=== PATIENT | male | born 1980 | race Caucasian/White ===

== ENCOUNTER 2016-05-25 13:30 | Emergency (ER) | payer OTHER ==
[2016-05-25] MEDS ORDERED: Ketorolac INJ* 30 MG/ML 1 ML VIAL IM ONE (14:30)
--- NOTE | 2016-05-25 14:53 | ED ---
Upper Extremity Pain - HPI Summary HPI Summary: 36 male presents with complaints of right elbow pain that began on while out looking for his son in the [place]. Patient states he was running and fell. The right elbow and shoulder pain did not begin until the day or second day after. Patient states he had a lot of adrenaline when he did fall on it on and did not notice. He thinks he just fell on the ground. He has tried taking 800mg of ibuprofen this morning and icing the elbow without any relief. Not moving the elbow and certain position give him relief. Describes the pain to be throbbing that gets worse while laying in bed at night. He is able to move it, however it causes him pain. Straightening hurts him more than bending. Admits to some tingling in his finger 3 through 5. He just moved here from [place] and does not have a PCP yet. Denies any other pain, did not hit his head, no LOC. Denies radiation of pain. PMHx significant for migraines, nothing else. Denies redness, swelling or bruising. - History of Current Complaint Chief Complaint: EDExtremityUpper Stated Complaint: RT SHOULDER ARM PAIN Time Seen by Provider: 05/25/16 13:35 Hx Obtained From: Patient Mechanism Of Injury: Direct Blow, Fall From A Standing Position, Twisted Onset/Duration: Started Days Ago, Traumatic, Still Present, Worse Since Timing: Constant Severity Initially: Mild Severity Currently: Moderate Pain Location: Shoulder, Elbow Character: Aching, Throbbing, Stiffness Aggravating Factor(s): Movement Alleviating Factor(s): Rest - position Associated Signs & Symptoms: Positive: Numbness/Tingling Related History: Dominant Hand Right - Allergies/Home Medications Allergies/Adverse Reactions: Allergies Allergy/AdvReac Type Severity Reaction Status Date / Time Penicillins Allergy Hives Verified 05/25/16 14:01 Sulfa Antibiotics Allergy Hives Verified 05/25/16 14:01 Home Medications: Home Medications Amitriptyline TAB* 25 mg PO BEDTIME 05/25/16 [History Confirmed 05/25/16] Propranolol LA CAP* 40 mg PO BID 05/25/16 [History Confirmed 05/25/16] PMH/Surg Hx/FS Hx/Imm Hx Neurological History: Reports: Hx Migraine - Surgical History Surgery Procedure, Year, and Place: none - Immunization History Immunizations Up to Date: Yes Infectious Disease History: No Infectious Disease History: Denies: Traveled Outside the [place] in Last 30 Days - Family History Known Family History: Positive: None - Social History Alcohol Use: Occasionally Substance Use Type: Reports: None Smoking Status (MU): Heavy Every Day Tobacco Smoker Review of Systems Constitutional: Negative Eyes: Negative Cardiovascular: Negative Respiratory: Negative Gastrointestinal: Negative Positive: Arthralgia, Myalgia, Decreased ROM - right elbow, shoulder Skin: Negative Neurological: Negative Psychological: Normal All Other Systems Reviewed And Are Negative: Yes Physical Exam Triage Information Reviewed: Yes Vital Signs On Initial Exam: Initial Vitals Temp Pulse Resp BP Pulse Ox 98.2 F 90 16 126/94 100 05/25/16 13:32 05/25/16 13:32 05/25/16 13:32 05/25/16 13:32 05/25/16 13:32 Vital Signs Reviewed: Yes Appearance: Positive: Well-Appearing, Well-Nourished, Pain Distress - mild Skin: Positive: Warm, Skin Color Reflects Adequate Perfusion - <2 second cap refill, Dry. Negative: Cold, Cyanosis @, Erythema @ Head/Face: Positive: Normal Head/Face Inspection Eyes: Positive: Normal, EOMI, CINDI, Conjunctiva Clear ENT: Positive: Normal ENT inspection, Hearing grossly normal Neck: Positive: Supple, Nontender Respiratory/Lung Sounds: Positive: Clear to Auscultation, Breath Sounds Present Cardiovascular: Positive: Normal, RRR, Pulses are Symmetrical in both Upper and Lower Extremities - 2+ bilateral radial pulse Abdomen Description: Positive: Nontender Musculoskeletal: Positive: Limited @ - ROM at right elbow with flexion and extension, worse with flexion due to pain. Passive ROM able but painful. right shoulder ROM limited with abduction due to pain. is able to do it passively. sensation and skin intact. No obvious deformity, step-off, ecchymosis, or erythema noted of right elbow or shoulder No edema when compared to left. No bony tenderness., Pain @ - No bony tendernessof upper extremities. Points to pain and appears tender on palpation of proximal posterior elbow (over brachioradials) and posterior shoulder/axilla on palpation. No pain on distal forearm, hand or humerous. Strength 3-4/5 when compared to left. Left side UE normal, Other - biceps femoris in-tact does not appear ruptured, able to flex arm. No sign of bursitis at this time.. Negative: Interruption @, Edema Left, Edema Right Neurological: Positive: Normal, Sensory/Motor Intact - pin-point sensation intact. however states it feels "different" to touch ulnar digits 3-5 versus 1& 2., Alert, Oriented to Person Place, Time, Reflexes Intact, NV Bundle Intact Distally, Normal Gait Psychiatric: Positive: Normal - [place] Coma Scale Coma Scale Total: 15 Diagnostics - Vital Signs Vital Signs Temp Pulse Resp BP Pulse Ox 05/25/16 13:32 98.2 F 90 16 126/94 100 - Laboratory Lab Statement: Any lab studies that have been ordered have been reviewed, and results considered in the medical decision making process. - Radiology right elbow Xray Interpretation: No Acute Changes - negative examination. no signs of fracture or dislocation. Radiology Interpretation Completed By: Radiologist right shoulder Xray Interpretation: No Acute Changes - negative examination. Radiology Interpretation Completed By: Radiologist Re-Evaluation - Re-Evaluation First Eval Re-Evaluation Time: 15:00 Change: Unchanged - pain was stated to be the same as before toradol, patient did need to have it manipulated for x-ray and thinks it may be because of that. Course/Dx - Course Course Of Treatment: Given ice and toradol IM for pain with some relief, patient did not want anything more at this time as he does have to drive. X- rays ordered of shoulder and elbow and were negative. Given pain medication to take at home and Naproxen for pain and inflammation. Elbow was wrapped with viridiana bandage. Given sling and referral. Aware or worsening signs and symptoms. - Diagnoses Differential Diagnosis/HQI/PQRI: Positive: Bursitis, Contusion, Fracture (Closed ), Strain, Sprain Provider Diagnoses: Sprain of elbow, right Discharge - Discharge Plan Condition: Stable Disposition: HOME Prescriptions: RX: Naproxen TAB* [Naprosyn TAB*] 375 mg PO BID PRN #20 tab PRN Reason: Pain Patient Education Materials: Elbow Sprain (ED) Referrals: Mini Hunt MD [Medical Doctor] - [facility] [place] PHYSICIAN REFERRAL [Outside] Additional Instructions: Take prescribed medication for the next 3-5 while symptoms persist for pain and inflammation. Take with food to avoid upset stomach. Ice, rest and elevate your elbow/shoulder. Use sling and viridiana bandage for support. Take off and move shoulder/elbow to avoid stiffening. Use pain as your guide when doing so. If pain persists please make an appointment with orthopedist or PCP to have re- evaluated and further imaging. If symptoms worsen such as swelling, redness, increased pain, warmth or numbness/unable to use your hand or arm please seek medical attention promptly and return.
--- NOTE | 2016-05-25 15:01 | RAD ---
INDICATION: Right elbow injury. TECHNIQUE: 4 views of the right elbow were obtained. FINDINGS: The bones are in normal alignment. No joint effusion or fracture is seen. Joint spaces appear maintained. IMPRESSION: NO EVIDENCE FOR FRACTURE.
--- NOTE | 2016-05-25 15:02 | RAD ---
INDICATION: Right shoulder pain. Injury. COMPARISON: None TECHNIQUE: Routine frontal and Y views were obtained. FINDINGS: The bony structures, joint spaces, and soft tissues are normal for age. IMPRESSION: NEGATIVE EXAMINATION
[2016-05-25 15:10] VITALS: BP 109/70
[2016-05-25] MEDS ORDERED: HYDROcodone/ACETAMIN 5-325 MG* 1 TAB PO ONE (15:39)
== END 2016-05-25 16:20 | disposition home or self-care (01) ==
LOC: ED 13:30
DX: S53.401A Unspecified sprain of right elbow, initial encounter (principal); M25.521 Pain in right elbow; W19.XXXA Unspecified fall, initial encounter; Y93.9 Activity, unspecified; Y92.9 Unspecified place or not applicable
CPT/HCPCS: 96372; 99282; J1885

== ENCOUNTER 2016-09-15 14:10 | Emergency (ER) | payer OTHER ==
[2016-09-15 14:14] VITALS: BP 125/81
[2016-09-15] MEDS ORDERED: Ketorolac INJ* 60 MG/2 ML VIAL IM ONE (15:56)
--- NOTE | 2016-09-15 16:01 | ED ---
Back Pain - HPI Summary HPI Summary: Patient presents to ED with CC of lower lumbar pain after son jumped on his back and he states he may have "twisted" it. He notes to 8/10 pain immediately which worsened over the course of the day and now he states he is unable to walk , flex, or extend without pain. Endorses pain shooting down the left leg without numbness or tingling. Denies bladder or bowel dysfunction. He endorses previous injury to the back many years ago but did not require surgery. He is a smoker but is otherwise healthy. Denies numbness or tingling in the toes. Pain is worse with flexion and extension and better with supine position. Also, c/o erythematous, indurated area measuring 1.5 x 1.5 under the right armpit without fluctuance x 2 weeks with no worsening redness, but endorses worsening pain. He has tried Ibuprofen without relief. - History of Current Complaint Chief Complaint: EDBackInjuryPain Stated Complaint: BACK PAIN Time Seen by Provider: 09/15/16 14:34 Hx Obtained From: Patient Onset/Duration: Sudden Onset, Worse Since - this morning Onset/Duration: Started Days Ago Timing: Constant Back Pain Location: Is Discrete @ - lumbar spine with worsening on left side Severity Initially: Moderate Severity Currently: Moderate Pain Intensity: 7 Pain Scale Used: 0-10 Numeric Character: Aching, Throbbing, Stiffness Aggravating Symptom(s): Movement, Lifting, Bending, Walking Alleviating Symptom(s): Rest, Position Associated Signs And Symptoms: Positive: Swelling Related History: Previous Back Injury - Risk Factors AAA Risk Factors: Negative TAD Risk Factors: Negative Cauda Equina Risk Factors: Negative Epidural Abscess Risk Factors: Negative - Allergies/Home Medications Allergies/Adverse Reactions: Allergies Allergy/AdvReac Type Severity Reaction Status Date / Time Penicillins Allergy Hives Verified 09/15/16 15:35 Sulfa Antibiotics Allergy Hives Verified 09/15/16 15:35 PMH/Surg Hx/FS Hx/Imm Hx Previously Healthy: Yes Neurological History: Reports: Hx Migraine - Surgical History Surgery Procedure, Year, and Place: none - Immunization History Hx Pertussis Vaccination: No Immunizations Up to Date: Unable to Obtain/Confirm Infectious Disease History: No Infectious Disease History: Denies: Traveled Outside the US in Last 30 Days - Family History Known Family History: Positive: None - Social History Occupation: Employed Full-time Lives: With Family Alcohol Use: Occasionally Hx Substance Use: No Substance Use Type: Reports: None Hx Tobacco Use: Yes Smoking Status (MU): Heavy Every Day Tobacco Smoker Review of Systems Constitutional: Negative Eyes: Negative Cardiovascular: Negative Respiratory: Negative Positive: no symptoms reported, see HPI Positive: Arthralgia, Myalgia Positive: Other - erythematous, indurated area measuring 1.5 x 1.5 under the right armpit without fluctuance Neurological: Negative Psychological: Normal All Other Systems Reviewed And Are Negative: Yes Physical Exam - Summary Physical Exam Summary: Thorough physical exam was performed, focusing on thoracic and lumbar special tests and ROM. Due to patient pain around injury, physical exam was limited. Limited ROM. Flip Test positive. Straight leg raise positive. Kernig test negative. Negative Babinksi. Hip flexion and extension, knee extension, dorsiflexion, great toe extension and plantar flexion intact. Rotating at hips limited d/t pain. Nerve roots L4-S2 reflexes intact. L1-S2 nerve root sensory intact. No saddle anesthesia. Gait normal. Triage Information Reviewed: Yes Vital Signs On Initial Exam: Initial Vitals Temp Pulse Resp BP Pulse Ox 97.8 F 75 16 125/81 100 09/15/16 14:13 09/15/16 14:13 09/15/16 14:13 09/15/16 14:13 09/15/16 14:13 Vital Signs Reviewed: Yes Appearance: Positive: Well-Appearing, Well-Nourished Skin: Positive: Warm, Skin Color Reflects Adequate Perfusion Eyes: Positive: Normal, EOMI, CINDI, Conjunctiva Clear Neck: Positive: Supple, Nontender, No Lymphadenopathy Respiratory/Lung Sounds: Positive: Clear to Auscultation, Breath Sounds Present Cardiovascular: Positive: Normal, RRR, Pulses are Symmetrical in both Upper and Lower Extremities Musculoskeletal: Positive: Other - see above Neurological: Positive: Sensory/Motor Intact, Alert, Oriented to Person Place, Time Diagnostics - Vital Signs Vital Signs Temp Pulse Resp BP Pulse Ox 09/15/16 15:33 98.7 F 75 16 125/81 100 09/15/16 14:13 97.8 F 75 16 125/81 100 - Laboratory Lab Statement: Any lab studies that have been ordered have been reviewed, and results considered in the medical decision making process. Back Pain Course/Dx - Course Course Of Treatment: Patient sent to imaging. Xray negative for fracture but xray shows retrolithesis around L5-S1 with unknown duration. Patient given orthopedic follow up in 5-7 days. Encouraged Ibuprofen 600mg three times daily with meals for pain. Toradol given as prescription and warnings discussed. Return precautions given. Educated patient regarding back injuries and healing time and the need for further imaging if discomfort is present for > 6 weeks. Abscess in the right under armpit area with slight redness and swelling. Area is indurated and non-fluctuant. Exquisitely tender. Discussed with patient to try oral antibiotics and warm compresses d/t induration and likely will not be able to express any fluid at this point. Patient agress and will follow up if worsening symptoms arise. Dr. Barnett given as referral. - Diagnoses Differential Diagnosis/HQI/PQRI: Positive: Arthritis, Herniated Disc, Strain, Sprain Provider Diagnoses: Acute low back pain, Armpit abscess Discharge - Discharge Plan Condition: Stable Disposition: HOME Prescriptions: Cyclobenzaprine TAB* [Flexeril TAB*] 10 mg PO BID PRN #10 tab PRN Reason: Pain DOXYcycline CAP(*) [DOXYcycline 100MG CAP(*)] 100 mg PO BID #14 cap Ketorolac TAB * [Toradol TAB *] 10 mg PO Q6H #16 tab Patient Education Materials: Abscess (ED), Acute Low Back Pain (ED) Forms: *Work Release Referrals: No Primary Care Phys,NOPCP [Primary Care Provider] - Rogers Barnett MD [Medical Doctor] - Additional Instructions: Dx. Muscle Strain in lower back Flexeril: This medication is a muscle relaxant and can help relieve muscle spasms, muscle strain, or pain sensations. Flexeril can cause side effects that may impair your thinking or reactions. Be careful if you drive or do anything that requires you to be awake and alert. Avoid drinking alcohol, which can increase some of the side effects of Flexeril. Toradol. Take up to 4 times daily for 4 days. Do not take Ibuprofen while taking Toradol. You may take Tylenol on opposite schedule of Toradol to improve effects of medications. Ibuprofen 600mg three times daily with meals for discomfort if symptoms persist past four days Return to ED if symptoms worsen or fail to improve, notice worsening swelling, warmth or redness around the joint, develop fever, or pain is uncontrolled with OTC medications. Moist heat to the area for comfort. Warm showers or baths may improve symptoms. It is important to remain mobile as tolerated to prevent stiffening of the joints and delay healing. Follow up with your PCP. If symptoms remain for > 6 weeks, please seek special medical attention from an orthopedic physician. If abscess under the arm worsens, please follow up with your PCP You have been given Doxycyline 100mg twice daily for 7 days. The area is not able to be drained of infection at this time, but if symptoms of infection worsen such as redness worsening around the area, warmth, red streaking up the arm or you develop a fever, return to ED or go see PCP immediately. Warm compresses to the abscess will help heal the area. Do this 2-3 times per day.
--- NOTE | 2016-09-15 16:53 | RAD ---
Indication: Back pain. 5 views of lumbar spine are reviewed. Retrolisthesis of L5 on S1 is noted. Disc space narrowing at L4-L5 is noted. No fracture is identified. IMPRESSION: Retrolisthesis of L5 on S1 of undetermined age. Degenerative disc disease at L4-L5.
== END 2016-09-15 17:20 | disposition home or self-care (01) ==
LOC: ED 14:10
DX: M54.5 Low back pain (principal); L02.411 Cutaneous abscess of right axilla; M51.36 Other intervertebral disc degeneration, lumbar region; Z88.1 Allergy status to other antibiotic agents; F17.200 Nicotine dependence, unspecified, uncomplicated
CPT/HCPCS: 72110; 96372; 99282; J1885

== ENCOUNTER 2016-12-27 10:47 | Emergency (ER) | payer OTHER ==
[2016-12-27 10:59] VITALS: BP 133/81
[2016-12-27] MEDS ORDERED: Ketorolac INJ* 60 MG/2 ML VIAL IM ONE (11:26)
[2016-12-27] MEDS ORDERED: cefTRIAXone VIAL(*) 1,000 MG VIAL IM ONE (11:26)
--- NOTE | 2016-12-27 15:00 | ED ---
Rowena Norton Emily, scribed for Bipin Nuñez MD on 12/27/16 at 1128 . Skin Complaint - HPI Summary HPI Summary: This patient is a 36 year old M presenting to [facility] with a chief complaint of insect bite to L forearm that occurred 3 days ago. Area of bite grew larger [employer]. The patient rates the pain 6/10 in severity. Symptoms aggravated by nothing. Symptoms alleviated by nothing. Patient reports swelling to area of bite. Patient denies body aches and general discomfort. Patient denies having a similar bite previously. - History of Current Complaint Chief Complaint: EDGeneral Time Seen by Provider: 12/27/16 11:01 Stated Complaint: SWELLING ON LT ARM Hx Obtained From: Patient Onset/Duration: Started Days Ago, Still Present Skin Exposure Onset/Duration: Days Ago Timing: Constant, Lasting Days Onset Severity: Moderate Current Severity: Moderate Pain Intensity: 6 Pain Scale Used: 0-10 Numeric Skin Location: Arm Aggravating Symptom(s): Nothing Alleviating Symptom(s): Nothing Related History: Insect Bite/Sting - Allergy/Home Medications Allergies/Adverse Reactions: Allergies Allergy/AdvReac Type Severity Reaction Status Date / Time Penicillins Allergy Hives Verified 09/15/16 15:35 Sulfa Antibiotics Allergy Hives Verified 09/15/16 15:35 PMH/Surg Hx/FS Hx/Imm Hx Previously Healthy: No Sensory History: Denies: Hx Deafness Neurological History: Reports: Hx Migraine - Surgical History Surgery Procedure, Year, and Place: Both knees replaced. Infectious Disease History: No Infectious Disease History: Denies: Hx of Known/Suspected MRSA, Traveled Outside the US in Last 30 Days - Family History Known Family History: Positive: Hypertension, Diabetes - Social History Alcohol Use: Occasionally Hx Substance Use: No Substance Use Type: Reports: None Hx Tobacco Use: Yes Smoking Status (MU): Heavy Every Day Tobacco Smoker Review of Systems Positive: Other - Negative body aches and general discomfort. Positive: Other - Positive insect bite and swelling All Other Systems Reviewed And Are Negative: Yes Physical Exam - Summary Physical Exam Summary: VITAL SIGNS: Reviewed. GENERAL: ~Patient is a well-developed and nourished male who is lying comfortable in the stretcher. ~Patient is not in any acute respiratory distress. HEAD AND FACE: No signs of trauma. ~No ecchymosis, hematomas or skull depressions. No sinus tenderness. EYES: PERRLA, EOMI x 2, No injected conjunctiva, no nystagmus. EARS: Hearing grossly intact. Ear canals and tympanic membranes are within normal limits. MOUTH: Oropharynx within normal limits. NECK: Supple, trachea is midline, no adenopathy, no JVD, no carotid bruit, no c- spine tenderness, neck with full ROM. CHEST: Symmetric, no tenderness at palpation LUNGS: Clear to auscultation bilaterally. No wheezing or crackles. CVS: Regular rate and rhythm, S1 and S2 present, no murmurs or gallops appreciated. ABDOMEN: Soft, non-tender. No signs of distention. No rebound no guarding, and no masses palpated. Bowel sounds are normal. EXTREMITIES: FROM in all major joints, no edema, no cyanosis or clubbing. NEURO: Alert and oriented x 3. No acute neurological deficits. Speech is normal and follows commands. SKIN: Dry and warm. Induration of the skin in the R forearm. No abscess or formation at this point. Possible cellulitis. Triage Information Reviewed: Yes Vital Signs On Initial Exam: Initial Vitals Temp Pulse Resp BP Pulse Ox 99.0 F 94 20 133/81 99 12/27/16 10:56 12/27/16 10:56 12/27/16 10:56 12/27/16 10:56 12/27/16 10:56 Vital Signs Reviewed: Yes - [place] Coma Scale Coma Scale Total: 15 Diagnostics - Vital Signs Vital Signs Temp Pulse Resp BP Pulse Ox 12/27/16 10:56 99.0 F 94 20 133/81 99 - Laboratory Lab Statement: Any lab studies that have been ordered have been reviewed, and results considered in the medical decision making process. Course/Dx - Course Assessment/Plan: This patient is a 36 year old M presenting to [facility] with a chief complaint of insect bite to L forearm that occurred 3 days ago. Area of bite grew larger [employer]. The patient rates the pain 6/10 in severity. Symptoms aggravated by nothing. Symptoms alleviated by nothing. Patient reports swelling to area of bite. Patient denies body aches and general discomfort. Patient denies having a similar bite previously. Patient with cellulitis in the left forearm. No abscess formation at this time. He was given Rocephin and Toradol for the pain. He was instructed to return to the ED if redness surpaces the teagan or if he develops an abscess. He understands and agrees. Patient is hemodynamically stable and A+O x 3. - Differential Diagnoses - Skin Complaint Differential Diagnoses: Allergic Reaction, Cellulitis, Drug Rash, Eczema - Diagnoses Provider Diagnoses: Cellulitis Discharge - Discharge Plan Condition: Stable Disposition: HOME Prescriptions: Clindamycin HCl [Clindamycin 150 MG CAP*] 150 mg PO QID #28 cap Naproxen TAB* [Naprosyn 250 mg TAB*] 500 mg PO Q8H PRN #30 tab PRN Reason: Pain Patient Education Materials: Cellulitis (ED), Clindamycin (By mouth), Naproxen (By mouth) Referrals: [facility] [place] [facility] REFERRAL [Outside] - 3 Days Additional Instructions: RETURN TO THE EMERGENCY DEPARTMENT FOR CHANGING OR WORSENING SYMPTOMS. The documentation as recorded by the Rowena crisostomo Emily accurately reflects the service I personally performed and the decisions made by Joaquin soler Walter, MD.
== END 2016-12-27 11:53 | disposition home or self-care (01) ==
LOC: ED 10:47
DX: L03.114 Cellulitis of left upper limb (principal); G43.909 Migraine, unspecified, not intractable, without status migrainosus; Z96.653 Presence of artificial knee joint, bilateral; Z88.0 Allergy status to penicillin; Z88.2 Allergy status to sulfonamides; F17.210 Nicotine dependence, cigarettes, uncomplicated
CPT/HCPCS: 96372; 99282; J0696; J1885

== ENCOUNTER 2016-12-28 20:05 | Emergency (ER) | payer OTHER ==
--- NOTE | 2016-12-28 23:32 | ED ---
Skin Complaint - HPI Summary HPI Summary: seen yesterday for an abscess on his left forearm ulnar aspect.. Is more painful today, increase erythema, no fevers - History of Current Complaint Chief Complaint: EDRashSkinAbscess Time Seen by Provider: 12/28/16 23:31 Stated Complaint: SWELLING ON LT ARM Hx Obtained From: Patient Onset/Duration: Started Days Ago, Still Present, Worse Since - today Timing: Constant Onset Severity: Mild Current Severity: Moderate Pain Intensity: 5 Pain Scale Used: 0-10 Numeric Skin Location: Discrete - left forearm ulnar aspect Character: Pain, Redness Aggravating Symptom(s): Nothing Alleviating Symptom(s): Nothing Associated Signs & Symptoms: Negative - Allergy/Home Medications Allergies/Adverse Reactions: Allergies Allergy/AdvReac Type Severity Reaction Status Date / Time Penicillins Allergy Hives Verified 12/28/16 20:17 Sulfa Antibiotics Allergy Hives Verified 12/28/16 20:17 PMH/Surg Hx/FS Hx/Imm Hx Previously Healthy: No Sensory History: Denies: Hx Deafness Neurological History: Reports: Hx Migraine - Cancer History Hx Hematologic Symptoms: No Hx Chemotherapy: No Hx Radiation Therapy: No Hx Palliative Cancer Treatment: No - Surgical History Surgery Procedure, Year, and Place: Both knees replaced. Hx Anesthesia Reactions: No - Immunization History Immunizations Up to Date: Yes Infectious Disease History: No Infectious Disease History: Denies: Hx of Known/Suspected MRSA, Traveled Outside the [place] in Last 30 Days - Family History Known Family History: Positive: None, Hypertension, Diabetes - Social History Occupation: Employed Full-time Lives: With Family Alcohol Use: Occasionally Hx Substance Use: No Substance Use Type: Reports: None Hx Tobacco Use: Yes Smoking Status (MU): Heavy Every Day Tobacco Smoker Do You Chew or Dip Tobacco: No Have You Chewed or Dipped Tobacco in the LAST YEAR: No Have You Smoked in the Last Year: Yes Household Exposure Type: Cigarettes Cessation Counseling: Patient Advised to Stop Review of Systems Constitutional: Negative Eyes: Negative ENT: Negative Cardiovascular: Negative Respiratory: Negative Gastrointestinal: Negative Genitourinary: Negative Musculoskeletal: Negative Skin: Other Positive: Other - abscess left forearm ulnar aspect Neurological: Negative Psychological: Normal All Other Systems Reviewed And Are Negative: Yes Physical Exam Triage Information Reviewed: Yes Vital Signs On Initial Exam: Initial Vitals Temp Pulse Resp BP Pulse Ox 98.2 F 65 16 134/78 100 12/28/16 20:14 12/28/16 20:14 12/28/16 20:14 12/28/16 20:14 12/28/16 20:14 Vital Signs Reviewed: Yes Appearance: Positive: Well-Appearing, Well-Nourished, Pain Distress Skin: Positive: Warm, Skin Color Reflects Adequate Perfusion, Dry, Other - 2cm diameter erythema and abscess firm with scabbed and slight drainage from the center-- Head/Face: Positive: Normal Head/Face Inspection Eyes: Positive: Normal, EOMI, CINDI ENT: Positive: Normal ENT inspection, Hearing grossly normal. Negative: Nasal congestion, Nasal drainage, Tonsillar swelling, Tonsillar exudate, Trismus, Muffled/hoarse voice, Dental tenderness Neck: Positive: Supple, Nontender Respiratory/Lung Sounds: Positive: Breath Sounds Present Cardiovascular: Positive: Normal, RRR, Pulses are Symmetrical in both Upper and Lower Extremities Musculoskeletal: Positive: Normal, Strength/ROM Intact Neurological: Positive: Normal, Sensory/Motor Intact, Alert, Oriented to Person Place, Time Psychiatric: Positive: Normal AVPU Assessment: Alert - [place] Coma Scale Best Eye Response: 4 - Spontaneous Best Motor Response: 6 - Obeys Commands Best Verbal Response: 5 - Oriented Procedures - Incision and Drainage Site: ulnar aspect of distal left forearm Anesthesia: Local - 1cc, Lidocaine Instrument(s): Scalpel Packing: Other - none Diagnostics - Vital Signs Vital Signs Temp Pulse Resp BP Pulse Ox 12/28/16 22:17 98.9 F 57 16 118/71 99 12/28/16 20:14 98.2 F 65 16 134/78 100 - Laboratory Lab Statement: Any lab studies that have been ordered have been reviewed, and results considered in the medical decision making process. Re-Evaluation - Re-Evaluation First Eval Change: Improved - scant purulent discharge, culture obtained, Course/Dx - Course Assessment/Plan: 2 days off work, increase clindamycin to 300 qid, add hydrocodone for pain, warm soaks q 2 hours while awake, follow with surgeon should symptoms fail to improve return to ED for increaseing pain or fever - Diagnoses Provider Diagnoses: Encounter for incision and drainage procedure, Abscess of arm, left Discharge - Discharge Plan Condition: Stable Disposition: HOME Prescriptions: Clindamycin HCl [Clindamycin 150 MG CAP*] 150 mg PO QID #28 cap Hydrocodone-Acetaminophen [Hydrocodone/Acetaminophen 5-325 mg] 1 - 2 tab PO Q4H PRN #16 tab MDD 8 PRN Reason: pain Patient Education Materials: Abscess (ED), Warm Compress or Soak (ED) Forms: *Work Release Referrals: Barrie Fernandes MD [Medical Doctor] - If Needed Additional Instructions: PLEASE CHANGE YOUR ANTIBIOTIC DOSE ____USE 2 of THE 150 mg Capsules 4 times a day for 7 days---I have sent additional medication to the pharmacy for you so you will have enough medicine for 7 days
[2016-12-28] MEDS ORDERED: HYDROcodone/ACETAMIN 5-325 MG* 1 TAB PO ONE (23:41)
[2016-12-28] MEDS ORDERED: Lidocaine 1% MDV 20 ML INJ ONE (23:42)
[2016-12-29] MEDS ORDERED: HYDROcodone/ACETAMIN 5-325 MG* 1 TAB PO ONE (00:05)
[2016-12-29 00:37] VITALS: BP 123/82
== END 2016-12-29 00:35 | disposition home or self-care (01) ==
LOC: ED 20:05
DX: L02.414 Cutaneous abscess of left upper limb (principal); G43.909 Migraine, unspecified, not intractable, without status migrainosus; Z96.653 Presence of artificial knee joint, bilateral; Z88.0 Allergy status to penicillin; Z88.2 Allergy status to sulfonamides; F17.210 Nicotine dependence, cigarettes, uncomplicated
CPT/HCPCS: 10060; 99282

== ENCOUNTER 2017-04-09 09:44 | Emergency (ER) | payer SELFPAY ==
--- NOTE | 2017-04-09 10:52 | RAD ---
HISTORY: Right shoulder pain, injury COMPARISONS: May 25, 2016 VIEWS: 9, Frontal internal rotation, external rotation, outlet, and axillary views of the right shoulder with frontal internal and external rotation views of the right humerus and lateral views of the right elbow. FINDINGS: BONE DENSITY: Normal. BONES: There is no displaced fracture. JOINTS: There is no arthropathy. ALIGNMENT: There is no dislocation. SOFT TISSUES: Unremarkable. OTHER FINDINGS: None. IMPRESSION: NO ACUTE OSSEOUS INJURY. IF SYMPTOMS PERSIST, RECOMMEND REPEAT IMAGING.
[2017-04-09] MEDS ORDERED: Ketorolac INJ* 60 MG/2 ML VIAL IM ONE (11:33)
[2017-04-09 12:02] VITALS: BP 106/57
--- NOTE | 2017-04-10 10:22 | ED ---
Marlene Norton Gabriel, scribed for Bipin Nuñez MD on 04/09/17 at 1015 . Upper Extremity Pain - HPI Summary HPI Summary: This patient is a 37 year old M presenting to [facility] with a chief complaint of RUE pain that began 04/08/17. The patient rates the pain 8/10 in severity. Symptoms aggravated by movement of the joint. Patient works at a [employer] and yesterday he was pouring a bucket into a vat when it began to fall and it rolled off the pallet, yanking his arm as it fell. Initially it was sore but now he is having pain down the back of the shoulder and into his neck. - History of Current Complaint Chief Complaint: EDExtremityUpper Stated Complaint: RT SHOULDER INJURY Time Seen by Provider: 04/09/17 09:58 Hx Obtained From: Patient Mechanism Of Injury: Other - yanked Onset/Duration: Still Present Timing: Constant Severity Initially: Moderate Severity Currently: Moderate Pain Location: Shoulder - right, Arm Associated Signs & Symptoms: Positive: Negative, Neck Pain - Allergies/Home Medications Allergies/Adverse Reactions: Allergies Allergy/AdvReac Type Severity Reaction Status Date / Time Penicillins Allergy Hives Verified 12/28/16 20:17 Sulfa Antibiotics Allergy Hives Verified 12/28/16 20:17 PMH/Surg Hx/FS Hx/Imm Hx Endocrine/Hematology History: Denies: Hx Blood Disorders, Hx Sickle Cell Disease, Hx Thyroid Disease Cardiovascular History: Denies: Hx Peripheral Vascular Disease, Hx Rheumatic Fever, Hx Syncope, Hx Valvular Heart Disease Respiratory History: Denies: Hx Chronic Obstructive Pulmonary Disease (COPD), Hx Lung Cancer GI History: Denies: Hx Cirrhosis, Hx Crohn's Disease, Hx Irritable Bowel Sensory History: Denies: Hx Eye Prosthesis, Hx Glaucoma, Hx Legally Blind, Hx Macular Degeneration, Hx Deafness Opthamlomology History: Denies: Hx Cataracts EENT History: Denies: Hx Deafness, Hx Hearing Problem Neurological History: Reports: Hx Migraine Denies: Hx CVA, Hx Dementia - Cancer History Hx Hematologic Symptoms: No Hx Chemotherapy: No Hx Radiation Therapy: No Hx Palliative Cancer Treatment: No - Surgical History Surgery Procedure, Year, and Place: Both knees replaced. Hx Anesthesia Reactions: No Infectious Disease History: No Infectious Disease History: Denies: Hx of Known/Suspected MRSA, Traveled Outside the [place] in Last 30 Days - Family History Known Family History: Positive: Hypertension, Diabetes - Social History Alcohol Use: Occasionally Hx Substance Use: No Substance Use Type: Reports: None Hx Tobacco Use: Yes Smoking Status (MU): Heavy Every Day Tobacco Smoker Have You Smoked in the Last Year: Yes Review of Systems Negative: Fever Positive: Other - RUE pain, right shoulder pain All Other Systems Reviewed And Are Negative: Yes Physical Exam - Summary Physical Exam Summary: VITAL SIGNS: Reviewed. GENERAL: Patient is a well-developed and nourished male who is lying comfortable in the stretcher. Patient is not in any acute respiratory distress. HEAD AND FACE: No signs of trauma. No ecchymosis, hematomas or skull depressions. No sinus tenderness. EYES: PERRLA, EOMI x 2, No injected conjunctiva, no nystagmus. EARS: Hearing grossly intact. Ear canals and tympanic membranes are within normal limits. MOUTH: Oropharynx within normal limits. NECK: Supple, trachea is midline, no adenopathy, no JVD, no carotid bruit, no c- spine tenderness, neck with full ROM. CHEST: Symmetric, no tenderness at palpation LUNGS: Clear to auscultation bilaterally. No wheezing or crackles. CVS: Regular rate and rhythm, S1 and S2 present, no murmurs or gallops appreciated. ABDOMEN: Soft, non-tender. No signs of distention. No rebound no guarding, and no masses palpated. Bowel sounds are normal. EXTREMITIES: right shoulder has no deformities, hematomas, or ecchymosis, decreased ROM that is secondary to pain ,Good pulses, good strength, good capillary refill , Track markings in left arm forearm NEURO: Alert and oriented x 3. No acute neurological deficits. Speech is normal and follows commands. SKIN: Dry and warm Triage Information Reviewed: Yes Vital Signs On Initial Exam: Initial Vitals Temp Pulse Resp BP Pulse Ox 97.5 F 72 16 134/86 100 04/09/17 09:50 04/09/17 09:50 04/09/17 09:50 04/09/17 09:50 04/09/17 09:50 Vital Signs Reviewed: Yes Diagnostics - Vital Signs Vital Signs Temp Pulse Resp BP Pulse Ox 04/09/17 09:50 97.5 F 72 16 134/86 100 - Laboratory Lab Statement: Any lab studies that have been ordered have been reviewed, and results considered in the medical decision making process. - Radiology humerus xray Radiology Interpretation Completed By: Radiologist - NO ACUTE OSSEOUS INJURY. IF SYMPTOMS PERSIST, RECOMMEND REPEAT IMAGING. ED physician has reviewed this radiology report. shoulder xray Radiology Interpretation Completed By: Radiologist - NO ACUTE OSSEOUS INJURY. IF SYMPTOMS PERSIST, RECOMMEND REPEAT IMAGING. ED physician has reviewed this radiology report. Course/Dx - Course Assessment/Plan: X rays of Shoulder and humerus are negative for fracture or dislocation. He was given Toradol and his symptoms improved. He will be placed in a shoulder immobilizer and discharged with pain medications. I discussed all the findings and test results with the patient. Patient was instructed to return to the emergency room immediately if any of the symptoms return or worsens. Plan of care was discussed with the patient and understands and agrees. All questions were answered at patient satisfaction. There were no further complaints or concerns. Lung exam before discharge: CTA B/L. Good air exchange. No wheezing or crackles heard. CVS: S1 and S2 present. No murmurs appreciated. Patient is alert and oriented x 3. Patient is hemodynamically stable. Patient will be discharged home with follow up PCP in the next 2-3 days - Diagnoses Differential Diagnosis/HQI/PQRI: Positive: Bursitis, Contusion, Fracture (Open) , Strain, Sprain Provider Diagnoses: Shoulder pain Discharge - Discharge Plan Condition: Stable Disposition: HOME Prescriptions: Naproxen [Naproxen 500 mg] 500 mg PO Q8H PRN #20 tab PRN Reason: Pain Patient Education Materials: Naproxen (By mouth), Shoulder Sprain (ED) Forms: *Work Release Referrals: [facility] [place] [facility]ERR[facility] [Outside] - 3 Days Ravi Durbin MD [Medical Doctor] - 3 Days Non Staff,Doctor [Primary Care Provider] - Additional Instructions: RETURN TO EMERGENCY DEPARTMENT FOR ANY NEW OR WORSENING SYMPTOMS The documentation as recorded by the Marlene crisostomo Gabriel accurately reflects the service I personally performed and the decisions made by me, Bipin Nuñez MD.
== END 2017-04-09 12:08 | disposition home or self-care (01) ==
LOC: ED 09:44
DX: M25.511 Pain in right shoulder (principal); Z88.0 Allergy status to penicillin; Z88.2 Allergy status to sulfonamides
CPT/HCPCS: 96372; 99282; J1885